=== PATIENT | male | born 1980 | race Caucasian/White ===

== ENCOUNTER 2016-09-16 19:31 | Emergency (ER) | payer OTHER ==
--- NOTE | 2016-09-16 20:35 | EDM.PDOC ---
ED HPI GENERAL MEDICAL PROBLEM - General Chief Complaint: General Stated Complaint: injury right foot Time Seen by Provider: 09/16/16 19:40 Source of Information: Reports: Patient History Limitations: Reports: No Limitations - History of Present Illness INITIAL COMMENTS - FREE TEXT/NARRATIVE: According to patient he was hoarding around with his son and his sandal slipped and twisted his right ankle inwards and strained his ankle. He felt sharp pain over the lateral aspect of the right ankle and swelling. Has been doing cold Compresses. Hurt to bear weight, has been walking with crutches. here to have it checked. No other injuries. Onset Date: 09/15/16 Location: Reports: Lower Extremity, Right Quality: Reports: Ache Severity: Moderate Improves with: Reports: Rest Worsens with: Reports: Movement Associated Symptoms: Denies: Confusion, Chest Pain, Cough, Fever/Chills, Nausea/ Vomiting, Rash, Shortness of Breath, Weakness ED ROS GENERAL - Review of Systems Review Of Systems: See Below Constitutional: Denies: Fever, Chills HEENT: Denies: Sinus Problem, Throat Pain Respiratory: Denies: Cough, Sputum Cardiovascular: Denies: Chest Pain, Lightheadedness Endocrine: Denies: Fatigue GI/Abdominal: Denies: Abdominal Pain, Nausea, Vomiting : Denies: Dysuria, Flank Pain Musculoskeletal: Reports: Joint Pain, Joint Swelling. Denies: Neck Pain, Shoulder Pain Skin: Denies: Cyanosis, Pruritis, Rash ED EXAM, GENERAL - Physical Exam Exam: See Below Exam Limited By: No Limitations General Appearance: Alert, WD/WN, No Apparent Distress Eye Exam: Bilateral Eye: EOMI Ears: Normal External Exam, Normal Canal, Hearing Grossly Normal, Normal TMs Nose: Normal Inspection, Normal Mucosa, No Blood Throat/Mouth: Normal Inspection, Normal Lips, Normal Teeth, Normal Gums, Normal Oropharynx, Normal Voice, No Airway Compromise Head: Atraumatic, Normocephalic Neck: Normal Inspection, Supple, Non-Tender, Full Range of Motion Respiratory/Chest: No Respiratory Distress, Lungs Clear, Normal Breath Sounds, No Accessory Muscle Use, Chest Non-Tender Cardiovascular: Normal Peripheral Pulses, Regular Rate, Rhythm, No Edema, No Gallop, No JVD, No Murmur, No Rub Extremities: Other (Right Ankle: There is swelling and brusing over the lateral aspect of the ankle. He odes have goof flexion and slightly painful extension. Also painful inversion of the foot.) Course - Vital Signs Text/Narrative:: Xray right ankle appears normal. Pt and spouse reassured that he has sprained his ankle, almost grade 2. Advised cold compresses for 24 hrs. Motrin 800mg 3 times daily for 4-5 days. Okay to weight bear. But as he claims it is hurting, I have advised him to use crutches and gradually progress on weight bearing. Followup with Primary care provider in 3-5 days for recheck. - Orders/Labs/Meds Orders: Active Orders 24 hr Category Date Time Status Wrist Comp Min 3V Rt [CR] Stat Exams 09/16/16 20:02 Ordered Departure - Departure Time of Disposition: 20:30 Disposition: Home, Self-Care 01 Condition: Good Clinical Impression: Ankle sprain - Discharge Information Forms: ED Department Discharge Additional Instructions: Pt and spouse reassured that he has sprained his ankle, almost grade 2. Advised cold compresses for 24 hrs. Motrin 800mg 3 times daily for 4-5 days. Okay to weight bear. But as he claims it is hurting, I have advised him to use crutches and gradually progress on weight bearing. Followup with Primary care provider in 3-5 days for recheck. - Problem List & Annotations (1) Ankle sprain SNOMED Code(s): 08635888 Code(s): S93.409A - SPRAIN OF UNSP LIGAMENT OF UNSPECIFIED ANKLE, INIT ENCNTR Status: Acute Current Visit: Yes - Problem List Review Problem List Initiated/Reviewed/Updated: Yes - My Orders Last 24 Hours: My Active Orders 09/16/16 20:02 Wrist Comp Min 3V Rt [CR] Stat - Assessment/Plan Last 24 Hours: My Active Orders 09/16/16 20:02 Wrist Comp Min 3V Rt [CR] Stat Assessment:: Right ankle sprain Plan: Pt and spouse reassured that he has sprained his ankle, almost grade 2. Advised cold compresses for 24 hrs. Motrin 800mg 3 times daily for 4-5 days. Okay to weight bear. But as he claims it is hurting, I have advised him to use crutches and gradually progress on weight bearing. Followup with Primary care provider in 3-5 days for recheck.
[2016-09-17 01:54] VITALS: BP 129/76
--- NOTE | 2016-09-17 09:08 | CR ---
DATE OF SERVICE: 09/16/16 CLINICAL DATA: Right foot. RIGHT ANKLE: There is mild soft tissue swelling over the lateral malleolus. No acute fracture or dislocation. No lytic or blastic bone lesions. [id number] [facility]
== END 2016-09-16 21:03 | disposition home or self-care (01) ==
LOC: LB.ED 19:31
DX: S93.401A Sprain of unspecified ligament of right ankle, initial encounter (principal); X50.0XXA Overexertion from strenuous movement or load, initial encounter
CPT/HCPCS: 73610-RT; 99283